=== PATIENT | female | born 1965 | race Caucasian/White ===

== ENCOUNTER 2019-01-14 20:28 | Inpatient (IN) | payer BC, OTHER ==
[~2019-01-14] VITALS: Ht 160 cm; Wt 59.4 kg
--- NOTE | 2019-01-14 20:40 | NUR ---
BBSELF FROM HOME STATING "PACEMAKER MAKING NOISE". PT BELIEVES PACEMAKER; PT AAOX4, PT ON MONITOR, VSS, NAD NOTED, PENDING ER PROVIDER EVAL
[2019-01-14 21:00] LABS: BASOPHILS # (AUTO) 0.3 /CMM (0.0-0.2); BASOPHILS % (AUTO) 4.9 % (0.0-2.0); EOSINOPHILS % (AUTO) 3.9 % (0.0-6.0); HEMATOCRIT 32 % (33-45); HEMOGLOBIN 10.2 g/dL (11.5-14.8); LYMPHOCYTES # (AUTO) 1.5 /CMM (0.8-4.8); LYMPHOCYTES % (AUTO) 28.4 % (20.0-44.0); MEAN CORPUSCULAR HGB CONC 32 g/dl (31.0-36.0); MEAN CORPUSCULAR VOLUME 88 fL (82-100); MONOCYTES # (AUTO) 0.5 /CMM (0.1-1.30); MONOCYTES % (AUTO) 9.9 % (2.0-12.0); NEUTROPHILS # (AUTO) 2.8 /CMM (1.8-8.9); NEUTROPHILS % (AUTO) 52.9 % (43.0-81.0); PLATELET COUNT (AUTO) 132 /CMM (150-450); RED BLOOD CELL COUNT(AUTO) 3.59 MIL/uL (4.0-5.2); WHITE BLOOD COUNT (AUTO) 5.2 K/uL (4.3-11.0)
[2019-01-14 21:06] LABS: CALCIUM, SERUM 8.9 mg/dL (8.5-10.1); CREATININE 0.7 mg/dL (0.6-1.3); POTASSIUM 3.8 mmol/L (3.5-5.1)
[2019-01-14] MEDS ORDERED: ASPIRIN EC 325 MG TABLET.DR PO ONE (21:25)
[2019-01-14] MEDS ORDERED: ASPIRIN 81 MG TAB.CHEW ONE (21:28)
[2019-01-14] MEDS ORDERED: ASPIRIN 325 MG TABLET PO ONE (21:30)
[2019-01-14] MEDS ORDERED: ASPIRIN 81 MG TAB.CHEW PO ONE (21:30)
[2019-01-14] MEDS ORDERED: WARF7.5T23 PO (21:45)
[2019-01-14] MEDS ORDERED: FURO-145 PO (21:45)
[2019-01-14] MEDS ORDERED: METO100T14 PO (21:45)
[2019-01-14] MEDS ORDERED: WARF5TAB77 PO (21:45)
--- NOTE | 2019-01-14 22:25 | NUR ---
REPORT GIVEN TO DOUGLAS VANN FOR TENZIN
--- NOTE | 2019-01-14 22:40 | NUR ---
DIAL[facility] HOUSE ATTENDANT NOTES Received patient from ER via [facility], accompanied by 1 ER staff. Admitted to TELE 314-2 due to Chest Pain under the service of Dr. Tucker. Patient in steady gait, able to ambulate from [facility] to bed with stand by assistance provided. Kept patient on bed comfort and warmth. On RA, no SOB/respiratory distress noted. Patient denies chest pain at this time, and verbalized "I had chest pain in the ER only." Admission routine done. Patient verbalized no skin issues identified, preferred to kept her clothes on. Patient verbalized wanting to eat, offered sandwich and some juice. Patient preferred soft diet due to s/p maxillary surgery 1 month ago. All nursing needs attended. Instructed patient to be on NPO after midnight for cardio eval in AM. Kept bed low and locked, siderails x2 up. Call light at bedside. Will continue to monitor accordingly.
--- NOTE | 2019-01-14 22:51 | NUR ---
Portia wheeler in EDM - 01/14/19 at 2252 by SUREKHA BBSELF FROM HOME STATING "PACEMAKER MAKING NOISE". PT BELIEVES PACEMAKER; PT AAOX4, PT ON MONITOR, VSS, NAD NOTED, PENDING ER PROVIDER HEBERT
--- NOTE | 2019-01-14 22:51 | NUR ---
PT TRANSFERRED TO MS3/TELE VIA ACLS PROTOCOL
[2019-01-14 23:00] VITALS: BP 125/73
[2019-01-14] MEDS ORDERED: ZOLPIDEM TARTRATE 5 MG TABLET PO PRN (23:30)
[2019-01-14] MEDS ORDERED: ACETAMINOPHEN 325 MG TABLET PO PRN (23:30)
[2019-01-14 23:45] VITALS: BP 125/73
[2019-01-15 04:00] VITALS: BP 115/63
--- NOTE | 2019-01-15 06:21 | NUR ---
[facility] CLOSING NOTES Patient awake on Mcmahon's position on bed. On RA, no SOB/respiratory distress noted. Patient denies discomfort at this time. Patient was noted sleeping well throughout the shift. All nursing needs attended. Patient was kept on NPO since midnight. Kept bed low and locked with siderials x2 up. Call light at bedside. For 2D echo this am. Endorsed to the next shift. Addendum: 01/15/19 at 0624 by EDWAR LORENZO RN On tele monitor - AV pacing 70s
[2019-01-15 06:23] LABS: BASOPHILS % (AUTO) 0.6 % (0.0-2.0); EOSINOPHILS % (AUTO) 3.9 % (0.0-6.0); HEMATOCRIT 29 % (33-45); HEMOGLOBIN 9.7 g/dL (11.5-14.8); LYMPHOCYTES # (AUTO) 1.4 /CMM (0.8-4.8); LYMPHOCYTES % (AUTO) 27.9 % (20.0-44.0); MEAN CORPUSCULAR HGB CONC 33 g/dl (31.0-36.0); MEAN CORPUSCULAR VOLUME 87 fL (82-100); MONOCYTES # (AUTO) 0.5 /CMM (0.1-1.30); MONOCYTES % (AUTO) 10.3 % (2.0-12.0); NEUTROPHILS # (AUTO) 2.9 /CMM (1.8-8.9); NEUTROPHILS % (AUTO) 57.3 % (43.0-81.0); PLATELET COUNT (AUTO) 118 /CMM (150-450); RED BLOOD CELL COUNT(AUTO) 3.35 MIL/uL (4.0-5.2)
[2019-01-15 06:46] LABS: CALCIUM, SERUM 8.4 mg/dL (8.5-10.1); CREATININE 0.5 mg/dL (0.6-1.3); POTASSIUM 3.9 mmol/L (3.5-5.1)
--- NOTE | 2019-01-15 07:30 | NUR ---
DR. PAZ, IN ORDERS GIVEN.AWAITING TECH TO CHECK PACEMAKER FUNCTION
[2019-01-15 08:00] VITALS: BP 123/62
[2019-01-15 08:46] LABS: IRON, SERUM 40 ug/dl (50-175); TOTAL IRON BINDING CAPACITY 447 ug/dl (250-450)
[2019-01-15 08:47] LABS: FERRITIN 17 ng/mL (8-388)
[2019-01-15] MEDS ORDERED: FUROSEMIDE 20 MG TABLET PO SCH (09:00)
[2019-01-15] MEDS ORDERED: METOPROLOL TARTRATE 50 MG TABLET PO SCH (09:00)
[2019-01-15] MEDS ORDERED: METOPROLOL TARTRATE 25 MG TABLET PO SCH (09:22)
[2019-01-15 09:46] VITALS: BP 123/62
[2019-01-15] MEDS ORDERED: HYDROCODONE/APAP 5/325MG 1 EACH TABLET PO PRN (10:00)
--- NOTE | 2019-01-15 13:30 | NUR ---
PACER CHECKED OUT BY [facility].OK,D TO LEAVE.REPORT OF [employer] TEXTED TO DR. PAZ-RN RECEIVED CALL FROM DR. HUTSON AND HE OK'D DC TODAY.PROTIME ORDERED.REVIEW OF PROTIME RESULTS WITH PT. 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 TO DRIVE SELF HOME.
[2019-01-15] MEDS ORDERED: WARFARIN SODIUM 7.5 MG TABLET PO SCH (17:00)
[2019-01-16] MEDS ORDERED: WARFARIN SODIUM 5 MG TABLET PO SCH (17:00)
== END 2019-01-15 13:25 | disposition home or self-care (01) | DRG 316 ==
LOC: ER 20:31 → TELE 22:14 → MED 01-15 09:17
PROVIDERS: ADMIT Internal Medicine; ATTEND Internal Medicine
DX: T82.897A Other specified complication of cardiac prosthetic devices, implants and grafts, initial encounter (principal); I48.91 Unspecified atrial fibrillation; Z95.2 Presence of prosthetic heart valve; Z95.0 Presence of cardiac pacemaker; Z79.01 Long term (current) use of anticoagulants; Z98.890 Other specified postprocedural states; I49.5 Sick sinus syndrome; Y84.9 Medical procedure, unspecified as the cause of abnormal reaction of the patient, or of later complication, without mention of misadventure at the time of the procedure; Y92.009 Unspecified place in unspecified non-institutional (private) residence as the place of occurrence of the external cause
CPT/HCPCS: 36415; 71045-TC; 80048-TC; 80061-TC; 82728-TC; 83540-TC; 84484-TC; 85025-TC; 85610-TC; 85730-TC; 87081-TC; 93307-TC; G0378

== ENCOUNTER 2022-11-25 13:33 | Emergency (ER) | payer OTHER ==
[~2022-11-25] VITALS: Ht 152.4 cm; Wt 59.0 kg
[~2022-11-25 13:33] MED LIST: FURO-145 PO; METO100T14 PO; WARF5TAB PO; WARF7.5T23 PO
[2022-11-25 15:02] VITALS: BP 127/52
--- NOTE | 2022-11-25 15:05 | NUR ---
COUGH AND CONGESTION SINCE YESTERDAY, +COVID TEST(HOME KIT) TODAY REQUSTING MEDICATION FOR COUGH AND CONGESTION.
[2022-11-25] MEDS ORDERED: BENZ-13 PO (15:17)
[2022-11-25] MEDS ORDERED: ALBU18HF2 INH (15:17)
--- NOTE | 2022-11-25 15:24 | NUR ---
Patient discharged to home in stable condition. Written and verbal after care instructions given. Patient verbalizes understanding of instruction. prescriptions given and instructions provided
== END 2022-11-25 15:25 | disposition home or self-care (01) ==
LOC: ER 13:38
DX: R05.9 Cough, unspecified (principal); I48.91 Unspecified atrial fibrillation; I10 Essential (primary) hypertension; Z95.2 Presence of prosthetic heart valve; Z79.899 Other long term (current) drug therapy; Z79.01 Long term (current) use of anticoagulants

== ENCOUNTER 2024-10-19 00:41 | Emergency (ER) | payer OTHER ==
[~2024-10-19] VITALS: Ht 152.4 cm; Wt 58.1 kg
[~2024-10-19 00:41] MED LIST changes: +ALBU18HF2 INH; +BENZ-13 PO
[2024-10-19 01:22] LABS: BASOPHILS % (AUTO) 0.6 % (0.0-2.0); EOSINOPHILS # (AUTO) 0.5 K/uL (0.0-0.7); EOSINOPHILS % (AUTO) 7.6 % (0.0-6.0); HEMATOCRIT 27 % (33-45); LYMPHOCYTES # (AUTO) 1.5 K/uL (0.8-4.8); LYMPHOCYTES % (AUTO) 22.8 % (20.0-44.0); MEAN CORPUSCULAR HEMOGLOBIN 28 PG (26.0-33.0); MEAN CORPUSCULAR HGB CONC 33 g/dl (31.0-36.0); MEAN CORPUSCULAR VOLUME 84 fL (82-100); MONOCYTES # (AUTO) 0.5 K/uL (0.1-1.30); NEUTROPHILS # (AUTO) 4.1 K/uL (1.8-8.9); PLATELET COUNT (AUTO) 183 K/uL (150-450); RED BLOOD CELL COUNT(AUTO) 3.23 MIL/uL (4.0-5.2); RED CELL DISTRIBUTION WIDTH 16.1 % (11.5-15.0); WHITE BLOOD COUNT (AUTO) 6.7 K/uL (4.3-11.0)
[2024-10-19] MEDS ORDERED: METOPROLOL TARTRATE INJ 5 MG/5 ML AMPUL ONE (01:30)
[2024-10-19 01:33] LABS: CALCIUM, SERUM 8.9 mg/dL (8.5-10.1); CREATININE 0.5 mg/dL (0.6-1.3); POTASSIUM 3.8 mmol/L (3.5-5.1)
[2024-10-19 01:43] LABS: ALBUMIN 3.4 g/dL (3.4-5.0); BILIRUBIN,TOTAL 0.4 mg/dL (0.2-1.0); MAGNESIUM 2.1 mg/dL (1.8-2.4); TOTAL PROTEIN, SERUM 7.4 g/dL (6.4-8.2)
[2024-10-19] MEDS: METOPROLOL TARTRATE INJ 5 MG/5 ML AMPUL IV ONE (01:43)
[2024-10-19 01:49] LABS: PROTHROMBIN TIME 50.6 SECS (9.2-11.1)
[2024-10-19 01:51] LABS: INR 5.33 (0.91-1.10)
[2024-10-19] MEDS ORDERED: AMIODARONE 150 MG/3 ML VIAL IV ONE ×2 (02:26→04:00)
[2024-10-19] MEDS: AMIODARONE 150 MG/3 ML VIAL IV ONE ×2 (02:44→04:24)
[2024-10-19 05:29] VITALS: BP 115/52; TEMP 98.4; O2SAT 98
== END 2024-10-19 05:29 | disposition left against medical advice (07) ==
LOC: ER 00:43
DX: I47.0 Re-entry ventricular arrhythmia (principal); I48.91 Unspecified atrial fibrillation; Z79.899 Other long term (current) drug therapy; Z90.49 Acquired absence of other specified parts of digestive tract; Z90.721 Acquired absence of ovaries, unilateral; Z95.0 Presence of cardiac pacemaker; Z95.2 Presence of prosthetic heart valve
CPT/HCPCS: 99285; 96374; 71045; 96375; 93005 ×3; 96376; 85025; 83605; 83735; 85610; 36415; 80053; 84484; 83880; J3490; J0282 ×2; A4223; J7060

== ENCOUNTER 2025-02-05 21:10 | Emergency (ER) | payer OTHER ==
[~2025-02-05] VITALS: Ht 152.4 cm; Wt 58.1 kg
[2025-02-05 21:43] LABS: BASOPHILS # (AUTO) 0.1 K/uL (0.0-0.2); BASOPHILS % (AUTO) 1.1 % (0.0-2.0); EOSINOPHILS # (AUTO) 0.4 K/uL (0.0-0.7); EOSINOPHILS % (AUTO) 5.7 % (0.0-6.0); HEMATOCRIT 33 % (33-45); HEMOGLOBIN 11.4 g/dL (11.5-14.8); LYMPHOCYTES # (AUTO) 1.9 K/uL (0.8-4.8); LYMPHOCYTES % (AUTO) 26.6 % (20.0-44.0); MEAN CORPUSCULAR HEMOGLOBIN 29 PG (26.0-33.0); MEAN CORPUSCULAR HGB CONC 35 g/dl (31.0-36.0); MEAN CORPUSCULAR VOLUME 85 fL (82-100); MONOCYTES # (AUTO) 0.6 K/uL (0.1-1.30); MONOCYTES % (AUTO) 8.4 % (2.0-12.0); NEUTROPHILS # (AUTO) 4.2 K/uL (1.8-8.9); NEUTROPHILS % (AUTO) 58.2 % (43.0-81.0); PLATELET COUNT (AUTO) 214 K/uL (150-450); RED BLOOD CELL COUNT(AUTO) 3.89 MIL/uL (4.0-5.2); RED CELL DISTRIBUTION WIDTH 18.5 % (11.5-15.0); WHITE BLOOD COUNT (AUTO) 7.2 K/uL (4.3-11.0)
[2025-02-05 21:52] LABS: CALCIUM, SERUM 9.3 mg/dL (8.5-10.1); CREATININE 0.5 mg/dL (0.6-1.3)
[2025-02-05] MEDS ORDERED: MORPHINE SULFATE INJ 4 MG/ML DISP.SYRIN ONE (22:52)
[2025-02-05] MEDS: MORPHINE SULFATE INJ 2 MG/ML DISP.SYRIN IV ONE (22:53)
[2025-02-05 23:06] VITALS: BP 132/66; TEMP 98.1; O2SAT 98
== END 2025-02-05 23:07 | disposition left against medical advice (07) ==
LOC: ER 21:12
DX: R51.9 Headache, unspecified (principal); Z86.73 Personal history of transient ischemic attack (TIA), and cerebral infarction without residual deficits; I48.91 Unspecified atrial fibrillation; Z79.899 Other long term (current) drug therapy; Z90.49 Acquired absence of other specified parts of digestive tract; Z90.721 Acquired absence of ovaries, unilateral; Z95.0 Presence of cardiac pacemaker; Z95.2 Presence of prosthetic heart valve; Z53.29 Procedure and treatment not carried out because of patient's decision for other reasons
CPT/HCPCS: 36415; 70450-TC; 80048-TC; 85025-TC; J2270